=== PATIENT | female | born 1995 | race Caucasian/White ===

== ENCOUNTER 2017-06-08 11:46 | Emergency (ER) | payer OTHER ==
[~2017-06-08] VITALS: Ht 154.9 cm; Wt 71.4 kg
[2017-06-08 11:49] VITALS: TEMP 36.9; Ht 154.9 cm; Wt 71.4 kg
[2017-06-08] MEDS ORDERED: SODIUM CHLORIDE 0.9% 1000ML 1,000 ML IV STA (12:25)
[2017-06-08] MEDS ORDERED: METOCLOPRAMIDE HCL INJ 5 MG/ML 2 ML VIAL IV STA (12:25)
[2017-06-08 12:35] VITALS: O2SAT 98
--- NOTE | 2017-06-08 12:36 | EMERGENCY ROOM VISIT NOTE ---
History Report prepared by Nenita: Suni Patel Under the Supervision of: Dr. Yeison Kay M.D. First contact with patient: 12:20 Chief Complaint: SYNCOPE Stated Complaint: SYNCOPE/DIZZINESS Nursing Triage Summary: Patient arrived vis EMS. Pt states had a cigarette this morning 10:45 am and got dizzy and collapsed, no seizure activity noted from bystanders, LOC less than 2 minutes. Patient is , 17 weeks. C/O headache, bilateral frontal, has had them frequently since her second trimester. Pt c/o bilateral lower back pain but had achiness there prior to collapsing. Pt friend stated to pt that pt fell straight back when she fell. History of Present Illness The patient is a 21 year old female who presents to the Emergency Room with complaints of a sudden syncopal episode that occurred prior to arrival. She currently rates her discomfort as a 6/10 in severity. The patient states that she is currently 17 weeks for the first time. She states that she was sitting on the porch smoking a cigarette when she suddenly became lightheaded and collapsed. The patient states that her friend states that she fell backwards, denying any head trauma. She denies any drug or alcohol use. The patient states that she smokes 1 cigarette every three days and denies this ever happening in the past with smoking. She reports a recent congestion. The patient reports that she did not eat breakfast this morning because she was not hungry. She reports normal eating and drinking otherwise. The patient states that she has been feeling lightheaded. She states that since the syncopal episode she has had a headache, but her significant other additionally notes that the patient has been getting headaches often since she became . The patient denies any history of headaches prior to her . She states that her previous ultrasounds have been normal and has had a normal thus far. The patient denies any active medical problems. She denies any fever , chills, abdominal pain, urinary symptoms, diarrhea, constipation, or vaginal bleeding. Source of History: patient Onset: prior to arrival Position: other (global) Symptom Intensity: 6/10 Quality: other (syncopal episode) Timing: other (sudden) Associated Symptoms: + headache, No fevers, No chills, No abdominal pain, No diarrhea, No urinary symptoms Note: Associated Symptoms: lightheadedness Review of Systems See HPI for pertinent positives and negatives. A total of ten systems were reviewed and were otherwise negative. Past Medical & Surgical Medical Problems: (1) No Known Active Medical Problems Social History Smoking Status: Current Every Day Smoker Alcohol Use: none Drug Use: none Marital Status: Housing Status: lives with significant other Current/Historical Medications Scheduled Nitrofurantoin Monohyd Macrocr (Macrobid), 100 MG PO BID Sertraline (Zoloft), 25 MG PO DAILY Allergies Coded Allergies: No Known Allergies (Unverified , 06/08/17) Physical Exam Vital Signs Date Time Temp Pulse Resp B/P (MAP) Pulse Ox O2 Delivery O2 Flow Rate FiO2 06/08/17 15:45 83 18 112/68 97 06/08/17 14:44 69 16 102/52 98 Room Air 06/08/17 13:59 72 109/61 97 Room Air 06/08/17 12:46 90 16 106/81 98 Room Air 06/08/17 12:35 98 Room Air 06/08/17 12:11 87 06/08/17 12:02 83 124/71 85 126/61 81 106/61 103 06/08/17 11:49 36.9 92 16 121/72 97 Room Air Physical Exam GENERAL: Awake, alert, well-appearing, in no distress HENT: Normocephalic, atraumatic. Dry mucous membranes. EYES: Normal conjunctiva. Sclera non-icteric. NECK: Supple. No nuchal rigidity. FROM. No JVD. RESPIRATORY: Clear to auscultation. CARDIAC: Regular rate, normal rhythm. Extremities warm and well perfused. Pulses equal. ABDOMEN: Gravid abdomen non-tender non-distended. Soft. No rebound or guarding. No masses. RECTAL: Deferred. MUSCULOSKELETAL: Chest examination reveals no tenderness. The back is symmetrical on inspection without obvious abnormality. There is no CVA tenderness to palpation. No joint edema. LOWER EXTREMITIES: Calves are equal size bilaterally and non-tender. No edema. No discoloration. NEURO: Normal sensorium. No sensory or motor deficits noted. SKIN: No rash or jaundice noted. Medical Decision & Procedures ER Provider Diagnostic Interpretation: The ultrasound revealed that the patient has a positive IUP, heart rate was 140 with active movement. Laboratory Results 06/08/17 11:10 Red Blood Count 4.43, Mean Corpuscular Volume 86.9, Mean Corpuscular Hemoglobin 30.0, Mean Corpuscular Hemoglobin Concent 34.5, Mean Platelet Volume 11.2, Neutrophils (%) (Auto) 73.4, Lymphocytes (%) (Auto) 20.8, Monocytes (%) (Auto) 4.5, Eosinophils (%) (Auto) 0.7, Basophils (%) (Auto) 0.1, Neutrophils # (Auto) 11.03, Lymphocytes # (Auto) 3.12, Monocytes # (Auto) 0.67, Eosinophils # (Auto) 0.10, Basophils # (Auto) 0.01 06/08/17 12:34 Test 06/08/17 00:00 06/08/17 11:10 06/08/17 12:34 Urine Color YELLOW Urine Appearance CLEAR (CLEAR) Urine pH 7.5 (4.5-7.5) Urine Specific Ackley 1.011 (1.000-1.030) Urine Protein NEG (NEG) Urine Glucose (UA) NEG (NEG) Urine Ketones TRACE (NEG) Urine Occult Blood NEG (NEG) Urine Nitrite NEG (NEG) Urine Bilirubin NEG (NEG) Urine Urobilinogen NEG (NEG) Urine Leukocyte Esterase TRACE (NEG) Urine WBC (Auto) 10-30 /hpf (0-5) Urine RBC (Auto) 0-4 /hpf (0-4) Urine Hyaline Casts (Auto) 1-5 /lpf (0-5) Urine Epithelial Cells (Auto) >30 /lpf (0-5) Urine Bacteria (Auto) 1+ (NEG) Urine Renal Epithelial Cells 0-5 /lpf (0-5) Urine Pathogenic Casts 0-3 GRANULAR CASTS /lpf (0) White Blood Count 15.01 K/uL (4.8-10.8) Red Blood Count 4.43 M/uL (4.2-5.4) Hemoglobin 13.3 g/dL (12.0-16.0) Hematocrit 38.5 % (37-47) Mean Corpuscular Volume 86.9 fL (80-100) Mean Corpuscular Hemoglobin 30.0 pg (25-34) Mean Corpuscular Hemoglobin Concent 34.5 g/dl (32-36) Platelet Count 331 K/uL (130-400) Mean Platelet Volume 11.2 fL (7.4-10.4) Neutrophils (%) (Auto) 73.4 % Lymphocytes (%) (Auto) 20.8 % Monocytes (%) (Auto) 4.5 % Eosinophils (%) (Auto) 0.7 % Basophils (%) (Auto) 0.1 % Neutrophils # (Auto) 11.03 K/uL (1.4-6.5) Lymphocytes # (Auto) 3.12 K/uL (1.2-3.4) Monocytes # (Auto) 0.67 K/uL (0.11-0.59) Eosinophils # (Auto) 0.10 K/uL (0-0.5) Basophils # (Auto) 0.01 K/uL (0-0.2) RDW Standard Deviation 42.2 fL (36.4-46.3) RDW Coefficient of Variation 13.1 % (11.5-14.5) Immature Granulocyte % (Auto) 0.5 % Immature Granulocyte # (Auto) 0.08 K/uL (0.00-0.02) Human Chorionic Gonadotropin, Quant 37670 mIU/mL Anion Gap 13.0 mmol/L (3-11) Est Creatinine Clear Calc Drug Dose 159.4 ml/min Estimated GFR () > 150.0 Estimated GFR (Non- 137.4 BUN/Creatinine Ratio 15.0 (10-20) Calcium Level 9.4 mg/dl (8.5-10.1) Total Bilirubin 0.2 mg/dl (0.2-1) Direct Bilirubin mg/dl (0-0.2) Aspartate Amino Transf (AST/SGOT) 16 U/L (15-37) Alanine Aminotransferase (ALT/SGPT) 15 U/L (12-78) Alkaline Phosphatase 81 U/L (45-117) Total Protein 6.7 gm/dl (6.4-8.2) Albumin 3.0 gm/dl (3.4-5.0) Lipase 104 U/L (73-393) Chemistry Specimen Hemolysis Laboratory results reviewed by me Medications Administered Medications (Trade) Dose Ordered Sig/Karen Route Start Time Stop Time Status Last Admin Dose Admin Sodium Chloride 1,000 ml @ 999 mls/hr Q1H1M STAT IV 06/08/17 12:25 06/08/17 13:25 DC 06/08/17 12:25 999 MLS/HR Metoclopramide HCl (Reglan Inj) 10 mg NOW STAT IV 06/08/17 12:25 06/08/17 12:28 DC 06/08/17 12:47 10 MG Nitrofurantoin Macrocrystals (Macrobid Cap) 100 mg ONE ONCE PO 06/08/17 15:15 06/08/17 15:16 DC 06/08/17 15:42 100 MG ECG Indication: syncope Rate (beats per minute): 88 Rhythm: normal sinus Findings: no acute ischemic change, other (normal axis, nomral intervals) ED Course 1223: The patient was evaluated in room B6. A complete history and physical exam was performed. 1225: Ordered Reglan Inj 10 mg IV, Sodium Chloride 1000 ml @ 999 mls/hr IV. 1327: I did a bedside ultrasound on the patients abdomen at this time. See diagnostic testing for further detail. Medical Decision Differential diagnosis: Etiologies such as vasovagal/orthostatic event, dehydration, infection, hypoglycemia, electrolyte abnormalities, cardiac sources, intracerebral event, neurologic, as well as others were entertained. I reviewed the patient's past medical history, medications, and the nursing notes as described above. Medication Reconciliation: I attest that I have personally reviewed the patient' s current medication list Patient is a 21-year-old woman who is 17 weeks who presents emergency Department with an episode of syncope history of present illness. Arrival the patient is in no acute distress. Afebrile stable vital signs. Bedside ultrasound shows + IUP with active fetus moving all extremities and FHR are 140s. EKG and labs unremarkable. Patient feeling improved with IV fluids and Reglan. No signs of external head trauma and she is neurologically intact thus do not believe head imaging is indicated at this time. UA dirty sample with many epithelial cells, however with 30 wbc's and positive LE with 1+ bacteria. Thus we'll treat this patient for asymptomatic bacteriuria with Macrobid. Otherwise, the patient's syncopal episode is likely related to orthostasis the setting of , as well as minimal oral intake this morning in setting of smoking a cigarette as well as possible UTI. Patient was counseled on smoking cessation during . Symptoms mostly resolved after IV fluids and Reglan. Findings and plan for OB follow-up d/w patient. Patient agreeable and d/c'd per discharge instructions. Impression Primary Impression: Syncope Additional Impression: Urinary tract infection Scribe Attestation The scribe's documentation has been prepared under my direction and personally reviewed by me in its entirety. I confirm that the note above accurately reflects all work, treatment, procedures, and medical decision making performed by me. Departure Information Dispostion Home / Self-Care Prescriptions Nitrofurantoin Monohyd Macrocr (Macrobid) 100 Mg Cap 100 MG PO BID, #14 CAP Prov: Yeison Kay M.D. 06/08/17 Patient Instructions ED Dizziness Syncope Fainting W Pre, Fainting (Syncope) - [facility], My [facility], Urinary Tract Infecs Women Additional Instructions Please follow up with your metal window frame maker in the next 1-3 days for re-evaluation. Your urine showed that you may have a urinary tract infection. Otherwise, your exam, EKG, and lab results did not show signs of an emergent condition at this time. Take antibiotics as directed. Drink plenty of fluids to ensure hydration. Return to the emergency department for worsening symptoms as described in the accompanying instructions. Problem Qualifiers
[2017-06-08 12:42] LABS: BASO % 0.1 %; BASO ABS # 0.01 K/uL (0-0.2); COMPLETE YES; EOS % 0.7 %; HEMATOCRIT 38.5 % (37-47); IG% 0.5 %; LYMPH % 20.8 %; LYMPH ABS # 3.12 K/uL (1.2-3.4); MEAN CELL VOLUME 86.9 fL (80-100); MEAN CORPUSCULAR HGB CONC 34.5 g/dl (32-36); MEAN PLATELET VOLUME 11.2 fL (7.4-10.4); MONO % 4.5 %; NEUT % 73.4 %; PLATELET COUNT 331 K/uL (130-400); RED BLOOD COUNT 4.43 M/uL (4.2-5.4); WHITE BLOOD COUNT 15.01 K/uL (4.8-10.8)
[2017-06-08] MEDS ORDERED: SERT25TA PO (13:07)
[2017-06-08 13:18] LABS: ALKALINE PHOSPHATASE 81 U/L (45-117); ALT/SGPT 15 U/L (12-78); AST/SGOT 16 U/L (15-37); BLOOD UREA NITROGEN 8 mg/dl (7-18); CALCIUM 9.4 mg/dl (8.5-10.1); CARBON DIOXIDE 20 mmol/L (21-32); CHLORIDE 104 mmol/L (98-107); GLUCOSE 82 mg/dl (70-99); POTASSIUM 3.9 mmol/L (3.5-5.1); SODIUM 137 mmol/L (136-145)
[2017-06-08 14:39] LABS: URINE APPEARANCE CLEAR (CLEAR); URINE BILIRUBIN NEG (NEG); URINE COLOR YELLOW; URINE EPITHELIAL CELL AUTO >30 /lpf (0-5); URINE NITRITE NEG (NEG); URINE PH 7.5 (4.5-7.5); URINE SPECIFIC GRAVITY 1.011 (1.000-1.030); UROBILINOGEN NEG (NEG); ZZUR CULT IF INDIC CLEAN CATCH YES
[2017-06-08 14:44] LABS: MANUAL MICROSCOPIC REQUIRED? NO; REVIEW REQ? YES
[2017-06-08 15:02] LABS: URINE PATH CASTS 0-3 GRANULAR CASTS /lpf (0)
[2017-06-08] MEDS ORDERED: NITR-5 PO (15:14)
[2017-06-08] MEDS ORDERED: NITROFURANTOIN MONOHYDRATE 100 MG CAP PO ONE (15:15)
[2017-06-08 15:45] VITALS: BP 112/68; PULSE 83; O2SAT 97
== END 2017-06-08 15:45 | disposition home or self-care (01) ==
LOC: EDBD 11:46 → C.EDB 11:48
DX: R55 Syncope and collapse (principal); O23.42 Unspecified infection of urinary tract in pregnancy, second trimester; O99.332 Smoking (tobacco) complicating pregnancy, second trimester; F17.210 Nicotine dependence, cigarettes, uncomplicated; Z3A.17 17 weeks gestation of pregnancy

== ENCOUNTER 2017-09-22 00:37 | Outpatient (CLI) | payer OTHER ==
[~2017-09-22] VITALS: Ht 157.5 cm; Wt 80.3 kg
[~2017-09-22 00:37] MED LIST: NITR-5 PO; SERT25TA PO
[2017-09-22 02:01] VITALS: Ht 157.5 cm; Wt 80.3 kg
--- NOTE | 2017-09-22 02:43 | Progress Note ---
Progress Note Date of Service Sep 22, 2017. Progress Note 21 F P0010 at 32.2 weeks seen in L&D complaining of pelvic pain. No bleeding or leakage of fluid. No urinary symptoms. No abdominal pain with exam. FHT Cat 1. Cervix closed/thick/-3. No evidence of any labor or contractions on monitor. Patient feels better and will be discharged home.
== END 2017-09-22 02:50 | disposition home or self-care (01) ==
LOC: C.OPB 00:37 → C.LD 00:40 → C.OPB 02:50
PROVIDERS: ATTEND Obstetrics & Gynecology
DX: O99.89 Other specified diseases and conditions complicating pregnancy, childbirth and the puerperium (principal); R10.2 Pelvic and perineal pain; Z3A.32 32 weeks gestation of pregnancy

== ENCOUNTER 2017-10-30 18:08 | Emergency (ER) | payer OTHER ==
[~2017-10-30] VITALS: Ht 154.9 cm; Wt 82.3 kg
[2017-10-30 18:14] VITALS: TEMP 36.5; Ht 154.9 cm; Wt 82.3 kg
[2017-10-30] MEDS ORDERED: ACETAMINOPHEN 500 MG TAB PO STA (18:34)
[2017-10-30] MEDS ORDERED: SODIUM CHLORIDE 0.9% 1000ML 1,000 ML IV ONE (18:45)
[2017-10-30] MEDS ORDERED: ONDANSETRON INJ 2 MG/ML 2 ML VIAL IV PRN (18:45)
--- NOTE | 2017-10-30 19:00 | EMERGENCY ROOM VISIT NOTE ---
History First contact with patient: 18:19 Chief Complaint: FLU LIKE SX Stated Complaint: VOTIMITING,FEVER, 38 WEEKS History of Present Illness The patient is a 22 year old female who presents to the Emergency Room with complaints of vomiting and fever that started last night. The patient has sternal approximately 10 times. She has had mild abdominal cramping. No diarrhea. The patient is 38 weeks . She has been struggling with constipation. Her fever was 100F. She did not take any medications. She is still feeling good movement. She denies any vaginal bleeding. She has not had any, patients with the . She is receiving care. Review of Systems 10 system review performed and negative unless noted in HPI or below Past Medical/Surgical History Medical Problems: (1) No Known Active Medical Problems Depression Social History Smoking Status: Never Smoker Alcohol Use: none Drug Use: none Marital Status: Housing Status: lives with significant other Current/Historical Medications Scheduled Docusate Sodium (Docusate Sodium), 100 MG PO DAILY Multivit/Min/Iron/Fol Ac/Pren ( Vitamin), 1 TAB PO DAILY Ondasetron Odt (Zofran Odt), 4 MG SL Q6H Sertraline (Zoloft), 25 MG PO DAILY Scheduled PRN Polyethylene Glycol 3350 (Miralax), 17 GM PO DAILY PRN for Constipation Physical Exam Vital Signs Date Time Temp Pulse Resp B/P (MAP) Pulse Ox O2 Delivery O2 Flow Rate FiO2 10/30/17 23:10 81 16 126/83 96 Room Air 10/30/17 20:55 93 18 111/72 97 Room Air 10/30/17 18:14 36.5 109 18 131/64 98 Room Air Physical Exam VITALS: Vitals are noted on the nurse's note and reviewed by myself. Vital signs stable. GENERAL: 22-year-old female,, in no acute distress, nondiaphoretic, well- developed well-nourished. SKIN: The skin was without rashes, erythema, edema, or bruising. HEAD: Normocephalic atraumatic. MOUTH: Mucous membranes moderately dry NECK: Supple without nuchal rigidity. No lymphadenopathy. Cervical spine is nontender. No JVD. HEART: Regular rate and rhythm without murmurs gallops or rubs. LUNGS: Clear to auscultation bilaterally without wheezes, rales or rhonchi. No accessory muscle use. ABDOMEN: Gravid. Positive bowel sounds x 4.Soft, nontender, without organomegaly. No guarding or rebound tenderness. MUSCULOSKELETAL: No muscle atrophy, erythema, or edema noted. Strength 5/5 throughout. NEURO: Patient was alert and oriented to person place and time. Normal sensation to touch. No focal neurological deficits. Medical Decision & Procedures ER Provider Diagnostic Interpretation: Gallbladder ultrasound Patient Name: JUANI HIDALGO Unit Number: [id number] Dictated: 10/30/172117 Transcribed: 10/30/172117 JRB Printed Date/Time: [~ rep prt dt]/[~ rep prt tm] [~ rep ct labl] - [~ rep ct ivnm] [facility] [place] [address] Dictated: 10/30/172117 Transcribed: 10/30/172117 JRB Printed Date/Time: [~ rep prt dt]/[~ rep prt tm] [~ rep ct labl] - [~ rep ct ivnm] IMPRESSION: 1. Unremarkable sonographic appearance of the gallbladder without cholelithiasis or sonographic evidence of acute cholecystitis. 2. No biliary ductal dilation. The above report was generated using voice recognition software. It may contain grammatical, syntax or spelling errors. Electronically signed by: Kaden Salas M.D. 10/30/2017 9:23 PM Dictated Date/Time: 10/30/2017 9:18 PM The status of this report is Signed. Draft = Not yet reviewed or approved by Radiologist. Signed = Reviewed and approved by Radiologist. <AttendingPhy></AttendingPhy> <FamilyPhy>Lina Stewart</FamilyPhy> < PrimaryPhy>Leticia Richards M.D.</PrimaryPhy> <UnitNumber>[id number]</UnitNumber > <VisitNumber>[id number]</VisitNumber> <PatientName>TRAE HIDALGOLUIS F Davey</ PatientName> <DateOfBirth>1995</DateOfBirth> <Location>[facility]</Location> < ServiceDate>10/30/17</ServiceDate> <MNE>ESINDI</MNE> <OrderingPhy>Rafaela Powers PA-C</OrderingPhy> <OrderingPhyMNE>f rep ord dr fisher</OrderingPhyMNE> < DictatingPhyMNE>f rep dict dr fisher</DictatingPhyMNE> <CCListMNE>f rep ct mne</ CCListMNE> <AdmittingPhyMNE>f pt admit dr fisher</AdmittingPhyMNE> <AttendingPhyMNE >f pt attend dr fisher</AttendingPhyMNE> <ConsultingPhyMNE>f pt consult dr fisher</ConsultingPhyMNE> <FamilyPhyMNE>f pt fam dr fisher</FamilyPhyMNE> <OtherPhyMNE>f pt other dr fisher</OtherPhyMNE> < PrimaryPhyMNE>f pt prim care dr fisher</PrimaryPhyMNE> <ReferringPhyMNE>f pt referring dr fisher</ReferringPhyMNE> Laboratory Results 10/30/17 18:50 Red Blood Count 4.24, Mean Corpuscular Volume 82.8, Mean Corpuscular Hemoglobin 27.4, Mean Corpuscular Hemoglobin Concent 33.0, Mean Platelet Volume 10.6, Neutrophils (%) (Auto) 88.0, Lymphocytes (%) (Auto) 8.5, Monocytes (%) (Auto) 2.7, Eosinophils (%) (Auto) 0.1, Basophils (%) (Auto) 0.1, Neutrophils # (Auto) 10.57, Lymphocytes # (Auto) 1.02, Monocytes # (Auto) 0.32, Eosinophils # (Auto) 0.01, Basophils # (Auto) 0.01 10/30/17 18:50 Test 10/30/17 18:50 10/30/17 19:09 White Blood Count 12.00 K/uL (4.8-10.8) Red Blood Count 4.24 M/uL (4.2-5.4) Hemoglobin 11.6 g/dL (12.0-16.0) Hematocrit 35.1 % (37-47) Mean Corpuscular Volume 82.8 fL (80-100) Mean Corpuscular Hemoglobin 27.4 pg (25-34) Mean Corpuscular Hemoglobin Concent 33.0 g/dl (32-36) Platelet Count 284 K/uL (130-400) Mean Platelet Volume 10.6 fL (7.4-10.4) Neutrophils (%) (Auto) 88.0 % Lymphocytes (%) (Auto) 8.5 % Monocytes (%) (Auto) 2.7 % Eosinophils (%) (Auto) 0.1 % Basophils (%) (Auto) 0.1 % Neutrophils # (Auto) 10.57 K/uL (1.4-6.5) Lymphocytes # (Auto) 1.02 K/uL (1.2-3.4) Monocytes # (Auto) 0.32 K/uL (0.11-0.59) Eosinophils # (Auto) 0.01 K/uL (0-0.5) Basophils # (Auto) 0.01 K/uL (0-0.2) RDW Standard Deviation 43.7 fL (36.4-46.3) RDW Coefficient of Variation 14.5 % (11.5-14.5) Immature Granulocyte % (Auto) 0.6 % Immature Granulocyte # (Auto) 0.07 K/uL (0.00-0.02) Anion Gap 8.0 mmol/L (3-11) Est Creatinine Clear Calc Drug Dose 125.1 ml/min Estimated GFR () 142.9 Estimated GFR (Non- 123.3 BUN/Creatinine Ratio 16.2 (10-20) Calcium Level 8.8 mg/dl (8.5-10.1) Total Bilirubin 0.4 mg/dl (0.2-1) Aspartate Amino Transf (AST/SGOT) 22 U/L (15-37) Alanine Aminotransferase (ALT/SGPT) 27 U/L (12-78) Alkaline Phosphatase 184 U/L (45-117) Total Protein 6.7 gm/dl (6.4-8.2) Albumin 2.4 gm/dl (3.4-5.0) Globulin 4.3 gm/dl (2.5-4.0) Albumin/Globulin Ratio 0.6 (0.9-2) Influenza Type A Antigen Neg for Influ A (NEG) Influenza Type B Antigen Neg for Influ B (NEG) Medications Administered Medications (Trade) Dose Ordered Sig/Karen Route Start Time Stop Time Status Last Admin Dose Admin Ondansetron HCl (Zofran Inj) 4 mg Q2H PRN IV 10/30/17 18:45 11/29/17 18:44 10/30/17 19:11 4 MG Sodium Chloride 1,000 ml @ 999 mls/hr Q1H1M ONCE IV 10/30/17 18:45 10/30/17 19:45 DC 10/30/17 18:45 999 MLS/HR Acetaminophen (Tylenol Tab) 1,000 mg NOW STAT PO 10/30/17 18:34 10/30/17 18:38 DC 10/30/17 19:11 1,000 MG ED Course Patient was seen and examined Vital signs including blood pressure were reviewed medications list was verified with patient Labs were obtained, and a saline lock was established The patient was medicated with Tylenol and Zofran. She was hydrated with 1 L of normal saline. heart rate was approximately 145 bpm The patient was sent for ultrasound. The patient was reassessed. She was resting comfortably. We discussed her workup. She voiced understanding. She was comfortable being discharged home. Her nausea was much improved. He was tolerating liquids. The patient was given a home pack of Zofran I reviewed discharge instructions the patient. They voiced understanding and had no further questions. Medical Decision Differential diagnosis: Viral gastroenteritis, bacterial gastroenteritis, bowel obstruction, constipation, influenza, other viral syndrome, pneumonia, gallbladder disease, preeclampsia This patient is a 22-year-old female 38 weeks presents to the emergency department with low-grade fever and vomiting. On exam, she was dehydrated. She did not have any tenderness in her abdomen. Her lungs were clear. She was nontoxic in appearance. The patient's has the same symptoms. The patient's influenza swab was negative. Her labs reveal mild leukocytosis. Her alk phosphatase was slightly elevated. I ordered an ultrasound to make sure that this was not related to her gallbladder given the . The ultrasound was negative. Very low suspicion of preeclampsia given the other LFTs are normal. Her blood pressure is well controlled. I believe she likely has a GI illness. She had good symptomatic relief in the emergency department. She is tolerating liquids. I believe she is stable to be discharged home. She was sent home with a course of Zofran. She was advised to contact her C++ QUANT DEVELOPER in the morning and return here with worsening symptoms. This chart was completed in part utilizing [employer] Speech Voice Recognition software. Attempts were made to minimize the grammatical errors, random word insertions, pronoun errors and incomplete sentences. Any formal questions or concerns about the content, text or information contained within the body of this dictation should be directly addressed to the provider for clarification. Medication Reconcilliation Current Medication List: was personally reviewed by me Blood Pressure Screening Patient's blood pressure: Normal blood pressure Impression Primary Impression: Vomiting Departure Information Dispostion Home / Self-Care Condition GOOD Prescriptions Ondasetron Odt (ZOFRAN ODT) 4 Mg Tab 4 MG SL Q6H for Nausea, #15 TAB Prov: Rafaela Powers PA-C 10/30/17 Referrals Leticia Richards M.D. (PCP) Patient Instructions ED Diet Vomiting Wwo Diarrhea Ch, My [facility] Additional Instructions You have been treated in the emergency department for vomiting and body aches. This is likely due to a viral GI illness that we'll need to run its course. It is important to stay well hydrated. Please increase her fluid intake such as water and Gatorade over the next 48 hours. I would stick to a clear liquid diet, no solid food tonight. If you are feeling better in the morning, please advance to a bland diet such as dry toast and crackers. Call the C++ QUANT DEVELOPER doctor first thing tomorrow morning for a recheck Zofran 1 tab every 6 hours as needed for nausea Tylenol 650 mg every 6 hours as needed for fever or pain Please do not hesitate to return to the emergency department with any new, worsening or concerning symptoms
[2017-10-30] MEDS ORDERED: POLY335019 PO (19:02)
[2017-10-30] MEDS ORDERED: CLC100X PO (19:02)
[2017-10-30] MEDS ORDERED: PRENTAB26 PO (19:02)
[2017-10-30 19:05] LABS: BASO % 0.1 %; BASO ABS # 0.01 K/uL (0-0.2); EOS % 0.1 %; EOS ABS # 0.01 K/uL (0-0.5); HEMATOCRIT 35.1 % (37-47); HEMOGLOBIN 11.6 g/dL (12.0-16.0); IG# 0.07 K/uL (0.00-0.02); LYMPH % 8.5 %; LYMPH ABS # 1.02 K/uL (1.2-3.4); MEAN CELL VOLUME 82.8 fL (80-100); MEAN CORPUSCULAR HEMOGLOBIN 27.4 pg (25-34); MEAN PLATELET VOLUME 10.6 fL (7.4-10.4); MONO % 2.7 %; MONO ABS # 0.32 K/uL (0.11-0.59); NEUT ABS # 10.57 K/uL (1.4-6.5); PLATELET COUNT 284 K/uL (130-400); RED CELL DISTRIBUTION WIDTH CV 14.5 % (11.5-14.5); RED CELL DISTRIBUTION WIDTH SD 43.7 fL (36.4-46.3)
[2017-10-30 19:21] LABS: ALBUMIN 2.4 gm/dl (3.4-5.0); CALCIUM 8.8 mg/dl (8.5-10.1); CREATININE 0.68 mg/dl (0.60-1.20); POTASSIUM 3.5 mmol/L (3.5-5.1)
[2017-10-30 19:24] LABS: TOTAL PROTEIN 6.7 gm/dl (6.4-8.2)
[2017-10-30 19:44] LABS: INFLUENZA B ANTIGEN Neg for Influ B (NEG)
--- NOTE | 2017-10-30 21:24 | DIAGNOSTIC IMAGING REPORT ---
GALLBLADDER-ABD LIMITED HISTORY: 22 years-old Female abd pain vomiting fever acute generalized abdominal pain with fever and vomiting COMPARISON: Head CT 06/08/2017 TECHNIQUE: Multiple real-time sonogram images of the abdominal right upper quadrant were obtained assessing grayscale appearance and color flow FINDINGS: Pancreas is obscured by bowel gas. Liver is within normal limits without focal mass or intrahepatic biliary ductal dilation measuring 13.8 cm in length. Common bile duct is normal, 7 mm. The gallbladder is within normal limits without wall thickening, pericholecystic fluid collections or shadowing cholelithiasis. Patient was unable to lie in a decubitus position. Acoustic windows limited. No hydronephrosis of the right kidney identified. IMPRESSION: 1. Unremarkable sonographic appearance of the gallbladder without cholelithiasis or sonographic evidence of acute cholecystitis. 2. No biliary ductal dilation. The above report was generated using voice recognition software. It may contain grammatical, syntax or spelling errors. Electronically signed by: Kaden Salas M.D. 10/30/2017 9:23 PM Dictated Date/Time: 10/30/2017 9:18 PM
[2017-10-30] MEDS ORDERED: ONDANSETRON HOME PACK 4MG OD TAB PO ONE (22:15)
[2017-10-30] MEDS ORDERED: ONDA4TAB10 SL (22:34)
[2017-10-30 23:10] VITALS: BP 126/83; PULSE 81; O2SAT 96
== END 2017-10-30 23:25 | disposition home or self-care (01) ==
LOC: C.EDB 18:11
DX: O99.89 Other specified diseases and conditions complicating pregnancy, childbirth and the puerperium (principal); E86.0 Dehydration; Z3A.38 38 weeks gestation of pregnancy; Z79.899 Other long term (current) drug therapy

== ENCOUNTER 2017-11-13 22:29 | Inpatient (IN) | payer OTHER ==
[~2017-11-13] VITALS: Ht 157.5 cm; Wt 83.6 kg
[~2017-11-13 22:29] MED LIST changes: +CLC100X PO; -NITR-5 PO; +ONDA4TAB10 SL; +POLY335019 PO; +PRENTAB26 PO
[2017-11-13] MEDS ORDERED: OXYCODONE/ACETAMINOPHEN 5-325 TAB PO PRN (23:00)
[2017-11-13 23:20] LABS: HEMATOCRIT 33.6 % (37-47); MEAN CELL VOLUME 82.2 fL (80-100); MEAN CORPUSCULAR HEMOGLOBIN 26.9 pg (25-34); MEAN CORPUSCULAR HGB CONC 32.7 g/dl (32-36); MEAN PLATELET VOLUME 10.4 fL (7.4-10.4); PLATELET COUNT 277 K/uL (130-400); RED CELL DISTRIBUTION WIDTH SD 44.6 fL (36.4-46.3)
[2017-11-13] MEDS ORDERED: LACTATED RINGER'S 1000ML 1,000 ML IV SCH (23:30)
[2017-11-13 23:40] LABS: ALBUMIN 2.2 gm/dl (3.4-5.0); ALT/SGPT 16 U/L (12-78); AST/SGOT 14 U/L (15-37); BLOOD UREA NITROGEN 14 mg/dl (7-18); CALCIUM 8.8 mg/dl (8.5-10.1); CARBON DIOXIDE 23 mmol/L (21-32); CREATININE 0.78 mg/dl (0.60-1.20); GLUCOSE 99 mg/dl (70-99); POTASSIUM 3.6 mmol/L (3.5-5.1); SODIUM 138 mmol/L (136-145)
[2017-11-13 23:42] LABS: ALKALINE PHOSPHATASE 180 U/L (45-117); TOTAL PROTEIN 6.5 gm/dl (6.4-8.2)
[2017-11-13] MEDS ORDERED: MoRPHine SULFATE 4 MG/ML 1 ML CARP\\VIAL IV STA (23:46)
[2017-11-14] VITALS (15 sets, daily range): BP systolic 95–116; BP diastolic 57–73; PULSE 67–75; TEMP 36.4–36.9; O2SAT 96–100; Ht 157.5 cm; Wt 83.6 kg
[2017-11-14] MEDS ORDERED: LACTATED RINGER'S 1000ML 1,000 ML IV SCH (00:05)
[2017-11-14] MEDS ORDERED: CEFAZOLIN IV 2,000 MG in DEXTROSE 5% 50ML 50 ML IV STA (00:12)
[2017-11-14] MEDS ORDERED: CITRIC ACID/SODIUM CITRATE 15 ML UDC PO ONE (00:15)
--- NOTE | 2017-11-14 00:17 | HISTORY & PHYSICAL EXAMINATION ---
DATE OF ADMISSION: 11/13/2017 CHIEF COMPLAINT: Headache and leakage of fluid and contractions. HISTORY OF PRESENT ILLNESS: The patient is a 22-year-old G2, P0-0-1-0 at 40 weeks and 1 day of gestation who has been feeling contractions since this morning. They have been irregular every 15-20 minutes and not getting closer. She also felt a mucousy discharge and leaking this morning. She has been trickling small amount of fluid since then which has been clear. She also started to have headache about 4 hours ago. It is in her left forehead and it has been 7/10 in intensity. She took Tylenol 1000 mg for that with no help. She denies any change in her vision, numbness, tingling and weakness. She denies nausea, vomiting, epigastric or right upper quadrant pain. She reports good movements. She is presenting with above symptoms and had a pelvic exam with a speculum. There was no pooling. Nitrazine negative, ferning negative. Pelvic exam showed her cervix is 1-2 cm, 30%, -3. Bedside ultrasound was done and baby was found to be in breech presentation, ROSELYN was 3.3 cm. Discussed the findings with her with breech presentation and low fluid. Recommended admission and delivery. Discussed External cephalic version vs Primary Csection. The risks of EVC and Csection discussed in details. Not a good candidate for ECV. She understands as a major surgery including risks of bleeding, infection, injury to surrounding organs, blood clots and future risk of recurrent C-sections. She ate a fatty meal at 9:30 p.m. She will be admitted now and starting IV fluids and labs and she will have a later tomorrow morning per anesthesiology recommendations. All questions were answered. Her has been complicated by: 1. History of depression. She is taking Zoloft 50 mg daily. 2. Abnormal quad screening, increased risk of Down's syndrome. She had MFM consult, ultrasound was normal. 3. Tobacco smoking complicating . She quit around 31 weeks. PAST MEDICAL HISTORY: As above. PAST SURGICAL HISTORY: Tonsillectomy, D&C, removal of pilonidal cyst. MEDICATIONS: vitamins, Zofran 4 mg as needed, Zoloft 50 mg daily, Colace 100 mg b.i.d., MiraLax 17 mg daily. ALLERGIES: No known drug allergies. OBSTETRICAL HISTORY: This is her second . She had spontaneous in 2011, she had a D&C for that. GYNECOLOGIC HISTORY: The patient denies any history of STDs including Chlamydia, gonorrhea, herpes. LABS: At new OB visit, her urine culture was negative. Her blood type was A positive, antibody screen negative, HIV nonreactive, hepatitis B surface antigen negative, RPR nonreactive, rubella titer positive. Earlier Glucola was within normal limits. GC chlamydia cultures were negative and GBS culture was negative. Quad screening test was positive. Increased risk for Down syndrome 1:239. PHYSICAL EXAMINATION: GENERAL: The patient is alert, oriented x3, not in acute distress. VITAL SIGNS: Blood pressure is 118/59, respiration 18, pulse 78, temperature 97.85 Fahrenheit. NEUROLOGICAL: Including cranial nerves II-XII are normal. Sensory exam normal. Extremity motor strength normal. Sensation normal. Reflexes, 2+ in the lower extremities. No clonus. ABDOMEN: Soft, nontender, gravid. Igor 8 pounds. EXTREMITIES: Nontender, no edema. PELVIC: Speculum exam, there were no pulling. Nitrazine negative, ferning negative. heart rate baseline is 120 with good accelerations, no decelerations, moderate variability. Tocometer contractions every 6-7 minutes. ASSESSMENT AND PLAN: The patient is a 22-year-old G2, P0-0-1-0 at 40 weeks and 1 day of gestation presenting with headache, irregular contractions and questionable leakage of fluid. Vital signs stable, afebrile. Neurologic exam is normal Spekulum exam negative for leaking of amniotic fluid. she was found to have a breech presentation with a low ROSELYN heart rate reassuring. GBS negative. Plan is to admit her, start IV fluids. Labs for CBC, LFTs and urinalysis and discussed the options with primary for breech delivery. She understands she is not a good candidate for external cephalic version. The patient understands and agrees with the plan and signed the informed consent. Consulted anesthesiology, Dr. Sykes who recommended surgery in the morning, at least 8 hours since last meal and agreed earlier if she changes her cervix or indication for emergent delivery rises. All questions were answered. SOREN
[2017-11-14] MEDS ORDERED: IV FLUIDS COMPLETED PRN (02:30)
[2017-11-14] MEDS ORDERED: SERT50TA PO ×2 (03:30→03:31)
[2017-11-14] MEDS ORDERED: MoRPHine SULFATE PF 1 MG/ML 10 ML AMP/VIAL ONE (07:03)
[2017-11-14] MEDS ORDERED: FENTANYL CITRATE INJ 50 MCG/1 ML 2 ML VIAL ONE (07:03)
[2017-11-14] MEDS ORDERED: SODIUM CHLORIDE 0.9% 1000ML 1,000 ML IV PRN (07:19)
[2017-11-14] MEDS ORDERED: LACTATED RINGER'S 1000ML 500 ML IV PRN (07:19)
[2017-11-14] MEDS ORDERED: NALOXONE HCL INJ 1 MG in SODIUM CHLORIDE 0.9% 1000ML 1,000 ML IV PRN (07:19)
[2017-11-14] MEDS ORDERED: NALOXONE HCL INJ 0.08 MG in SYRINGE 1.8 ML IV PRN (07:19)
[2017-11-14] MEDS ORDERED: NO NARCOTICS OR SEDATIVES SCH (07:30)
[2017-11-14] MEDS ORDERED: NALBUPHINE HCL INJ 10 MG/ML AMP IV PRN (07:30)
[2017-11-14] MEDS ORDERED: ONDANSETRON INJ 2 MG/ML 2 ML VIAL IV PRN ×2 (07:30)
[2017-11-14] MEDS ORDERED: EpHEDrine SULFATE INJ 50 MG/ML AMP IV PRN ×2 (07:30)
[2017-11-14] MEDS ORDERED: MoRPHine SULFATE 2 MG/ML CARP IV PRN (07:30)
[2017-11-14] MEDS ORDERED: ATROPINE SULFATE 0.1 MG/ML 5ML SYR IV PRN (07:30)
[2017-11-14] MEDS ORDERED: ACETAMINOPHEN 1000 MG/100 ML IV IV ONE (07:30)
[2017-11-14] MEDS ORDERED: DC INTRASPINAL MORPHINE SCH (07:30)
[2017-11-14] MEDS ORDERED: DiphenhydrAMINE HCL 50 MG/ML VIAL IV PRN (07:30)
[2017-11-14] MEDS ORDERED: PROMETHAZINE HCL INJ 25 MG in SODIUM CHLORIDE 0.9% 50ML 50 ML IV PRN (07:30)
[2017-11-14] MEDS ORDERED: NALOXONE HCL 0.4 MG/1 ML VIAL/CARP IV PRN (07:30)
[2017-11-14] MEDS ORDERED: MoRPHine SULFATE PF 1 MG/ML 10 ML AMP/VIAL EPI PRN (07:30)
[2017-11-14] MEDS ORDERED: CEFAZOLIN IV 2,000 MG in SYRINGE 5 ML IV STA (07:33)
[2017-11-14] MEDS ORDERED: PHENYLEPHRINE 100MCG/ML 5ML SYR ONE (08:21)
[2017-11-14] MEDS ORDERED: ONDANSETRON INJ 2 MG/ML 2 ML VIAL ONE (08:21)
[2017-11-14] MEDS ORDERED: KETOROLAC TROMETHAMINE 30 MG/ML VIAL ONE (08:32)
[2017-11-14] MEDS ORDERED: OXYTOCIN INJ 20 UNITS in D5W AND LACTATED RINGERS 1,000 ML IV SCH (08:37)
[2017-11-14] MEDS ORDERED: SUPERCREAM 0.870 % 15GM JAR EXT PRN (08:45)
[2017-11-14] MEDS ORDERED: DIPHTHERIA/TETANUS/PERTUSSIS 0.5 ML SYR/VIAL IM. ONE (08:45)
[2017-11-14] MEDS ORDERED: BENZOCAINE 20% AER SPR 82.5 GM CAN EXT PRN (08:45)
[2017-11-14] MEDS ORDERED: SENNA 8.6 MG TAB PO PRN (08:45)
[2017-11-14] MEDS ORDERED: MEASLES, MUMPS & RUBELLA VIRUS VIAL SQ. ONE (08:45)
[2017-11-14] MEDS ORDERED: MAGNESIUM HYDROXIDE SUSP 30 ML UDC PO PRN (08:45)
[2017-11-14] MEDS ORDERED: LANOLIN OINT EXT PRN (08:45)
[2017-11-14] MEDS ORDERED: HYDROCORTISONE ACETATE 25 MG SUPP PR PRN (08:45)
--- NOTE | 2017-11-14 08:54 | [facility] Post Operative Brief Note ---
Immediate Operative Summary Operative Date Nov 14, 2017. Pre-Operative Diagnosis PRIMARY CAESAREAN SECTION, BREECH PRESENTATION, OLIGOHYDRAMNIOS Post-Operative Diagnosis SAME WITH DELIVERY OF LIVE MALE CHILD Procedure(s) Performed LOW TRANSVERSE CAESAREAN SECTION Surgeon DR POLLARD Ob/Gyn Doctor Surgeon(s) DR SPANGLER Estimated Blood Loss 500CC Findings Consistent with Post-Op Diagnosis Fluids (cc crystalloids) 1600 ml LR Specimens A: CORD BLOOD B: PLACENTA EXAM Drains TIPTON 150 ML URINE Anesthesia Type Spinal Complication(s) none Disposition Disposition: L&D
[2017-11-14] MEDS ORDERED: OXYTOCIN INJ 20 UNITS in LACTATED RINGER'S 1000ML 1,000 ML IV SCH (09:00)
--- NOTE | 2017-11-14 09:33 | OPERATIVE REPORT ---
DATE OF OPERATION: 11/14/2017 PREOPERATIVE DIAGNOSES: The patient is a 22-year-old G2, P0-0-1-0 at 40 weeks and 2 days of gestation, breech presentation and oligohydramnios. POSTOPERATIVE DIAGNOSES: Same. PROCEDURE: Primary low transverse with Pfannenstiel skin incision. SURGEON: Morgan Aaron MD FINANCE ASSISTANT: Mo Camp MD EBL: 500 mL FLUIDS: 1600 mL of lactated ringer. SPECIMENS: Placenta and cord blood. DRAINS: Nguyen drained 150 mL of urine. ANESTHESIA: Spinal. COMPLICATIONS: None. FINDINGS: Baby was a viable male infant delivered at 08:03 a.m. Apgars were 8/9. Weight was 7 pounds 9 ounces, which is 3430 grams. Baby was in a suzy breech presentation. MATERNAL FINDINGS: Normal uterus, fallopian tubes and ovaries. DESCRIPTION OF PROCEDURE: The patient was taken to the operating room where spinal anesthesia was given without difficulty. She was placed in dorsal supine position with a leftward tilt. She was prepared and draped in usual sterile fashion. A Pfannenstiel skin incision was made and carried through to the underlying layer of fascia with the Bovie. Fascia was incised in midline and incision extended laterally with the help of Macias scissors. Lower aspect of the fascial incision was grasped with Leela clamps, elevated, underlying rectus muscles were dissected off sharply and the upper aspect of the fascial incision was then grasped with Leela clamps, elevated, underlying rectus muscles were dissected off sharply. Rectus muscles were in the midline and peritoneum was entered bluntly. Peritoneal incision was then extended superiorly and inferiorly with good visualization of the bladder. Bladder blade was inserted. Vesicouterine peritoneum was identified, grasped with pickups and entered sharply with Metzenbaum scissors. Bladder flap was created digitally and bladder blade was reinserted. Lower uterine segment was incised in a transverse fashion and incision was extended laterally with the help of bandage scissors. Membranes were ruptured. Clear fluid was obtained and the baby's buttocks were delivered without difficulty, then the trunk gently, the arms in a flexion position and the head without difficulty. Mouth and nose were suctioned. Cord was clamped x2 at 1 minute and cut. The baby was handed off to the awaiting wrapper cashier and cord blood was obtained. Placenta was delivered manually as intact and complete. Uterus was exteriorized, cleared of all clots and debris. The incision was repaired with 0 Vicryl in a running locked fashion. A second imbricating layer was placed with 0 Vicryl in a running locked fashion. There was an oozing point in the middle of the repair, which was repaired with figure-of- eight stitches x2. There was another one on the right side of the middle, which was also controlled with [id number] stitch x2. Excellent hemostasis was achieved. The uterus was returned to the abdomen and pelvis was irrigated with warm normal saline and suctioned. Incision was inspected to be hemostatic. Then the parietal peritoneum was identified, grasped with Leela clamps and repaired with 3-0 Vicryl in a running fashion. The rectus muscles were closed with the same suture in a running fashion. The rectus fascia was reapproximated with 0 Vicryl in a running fashion starting from both corners and meeting in the midline and the subcuticular fat tissue was reapproximated with 3-0 Vicryl in a running fashion and the skin was closed with 4-0 Monocryl in a subcuticular fashion. The patient tolerated the procedure well. Sponge, lap and needle counts were correct x3. The patient was given 2 grams of cefazolin before surgery. She was taken to the recovery room in stable condition. No complications happened. I and Dr. Camp were present during the whole procedure. I attest to the content of the Intraoperative Record and any orders documented therein. Any exceptions are noted below. SOREN
[2017-11-14] MEDS ORDERED: ACETAMINOPHEN IV 100 ML IV PRN (10:45)
[2017-11-14] MEDS: SIMETHICONE 80 MG CHEW PO SCH ×3 (14:17→19:54)
[2017-11-14] MEDS: KETOROLAC TROMETHAMINE 30 MG/ML VIAL IV. PRN ×2 (14:18→19:54)
[2017-11-14] MEDS ORDERED: NURSING VERBAL MED ORDER ONE (14:45)
[2017-11-14] MEDS: DOCUSATE SODIUM 100 MG CAP PO SCH (19:54)
--- NOTE | 2017-11-14 20:20 | Anesthesiology Progress Note ---
Anesthesia Post Op Note Date & Time Nov 14, 2017 at 20:19 Vital Signs Pain Intensity: 4.0 Vital Signs Past 12 Hours Date Time Temp Pulse Resp B/P (MAP) Pulse Ox O2 Delivery O2 Flow Rate FiO2 11/14/17 20:00 18 99 11/14/17 19:15 36.4 75 18 116/73 (87) Room Air 11/14/17 19:00 17 97 11/14/17 18:00 20 98 11/14/17 17:00 17 97 11/14/17 16:00 18 98 11/14/17 15:30 98 Room Air 11/14/17 15:30 36.5 70 20 113/68 (83) 98 Room Air 11/14/17 15:00 20 98 11/14/17 14:00 18 96 11/14/17 13:00 18 96 11/14/17 12:00 20 96 11/14/17 11:45 96 Room Air 11/14/17 11:45 36.7 71 20 101/63 (76) 96 Room Air Notes Mental Status: alert / awake / arousable, participated in evaluation Nausea / Vomiting: adequately controlled Pain: adequately controlled Airway Patency, RR, SpO2: stable & adequate BP & HR: stable & adequate Hydration State: stable & adequate Neuraxial Anesthesia: was administered, sensory block resolved Anesthetic Complications: no major complications apparent
[2017-11-14] MEDS: SERTRALINE HCL 50 MG TAB PO SCH (21:45)
[2017-11-15] VITALS (13 sets, daily range): BP systolic 93–108; BP diastolic 60–66; PULSE 71–73; TEMP 36.7–36.9; O2SAT 97–100
[2017-11-15] MEDS: KETOROLAC TROMETHAMINE 30 MG/ML VIAL IV. PRN (05:50)
[2017-11-15] MEDS ORDERED: DiphenhydrAMINE HCL 50 MG/ML VIAL IV PRN (06:00)
[2017-11-15] MEDS ORDERED: OXYCODONE/ACETAMINOPHEN 5-325 TAB PO PRN (06:00)
[2017-11-15] MEDS ORDERED: KETOROLAC TROMETHAMINE 30 MG/ML VIAL IV. PRN (06:00)
[2017-11-15] MEDS ORDERED: ONDANSETRON INJ 2 MG/ML 2 ML VIAL IV PRN (06:00)
[2017-11-15] MEDS ORDERED: MEPERIDINE HCL 50 MG/ML CARP IV PRN ×2 (06:00)
[2017-11-15 06:16] LABS: BASO % 0.2 %; BASO ABS # 0.02 K/uL (0-0.2); EOS % 0.9 %; EOS ABS # 0.09 K/uL (0-0.5); HEMATOCRIT 28.4 % (37-47); IG# 0.08 K/uL (0.00-0.02); LYMPH % 25.8 %; LYMPH ABS # 2.63 K/uL (1.2-3.4); MEAN CELL VOLUME 83.3 fL (80-100); MEAN CORPUSCULAR HEMOGLOBIN 26.4 pg (25-34); MEAN CORPUSCULAR HGB CONC 31.7 g/dl (32-36); MEAN PLATELET VOLUME 10.2 fL (7.4-10.4); MONO % 2.9 %; NEUT % 69.4 %; NEUT ABS # 7.08 K/uL (1.4-6.5); PLATELET COUNT 234 K/uL (130-400); RED CELL DISTRIBUTION WIDTH CV 15.2 % (11.5-14.5)
--- NOTE | 2017-11-15 07:19 | OB/GYN Progress Note ---
CASH APPLICATIONS ASSOCIATE Progress Note Date of Service Nov 15, 2017. Subjective conversation w/ patient, physical exam Ambulation: ambulating normally Voiding: no voiding problems Passing Gas: Yes Diet Tolerance: Clear Liquids Lochia: Small Pain: 03/19 Notes: Doing well, no concerns. Pain well controlled. Tolerating liquids. +flatus, - BM. Ambulating without difficulty. Incision dressing removed. Objective Vital Signs Date Time Temp Pulse Resp B/P (MAP) Pulse Ox O2 Delivery O2 Flow Rate FiO2 11/15/17 05:00 16 97 11/15/17 04:00 18 98 11/15/17 03:10 36.9 73 18 93/60 (71) Room Air 11/15/17 03:00 16 98 11/15/17 02:00 16 98 11/15/17 01:00 16 98 11/15/17 00:00 18 100 11/14/17 23:35 Room Air 11/14/17 23:35 36.9 67 18 95/57 (70) 100 Room Air 11/14/17 23:00 16 97 11/14/17 21:00 20 98 11/14/17 20:00 18 99 11/14/17 19:15 36.4 75 18 116/73 (87) Room Air 11/14/17 19:00 17 97 11/14/17 18:00 20 98 11/14/17 17:00 17 97 11/14/17 16:00 18 98 11/14/17 15:30 98 Room Air 11/14/17 15:30 36.5 70 20 113/68 (83) 98 Room Air 11/14/17 15:00 20 98 11/14/17 14:00 18 96 11/14/17 13:00 18 96 11/14/17 12:00 20 96 11/14/17 11:45 96 Room Air 11/14/17 11:45 36.7 71 20 101/63 (76) 96 Room Air Physical Exam General Appearance: WELL-APPEARING Respiratory/Chest: chest non-tender, lungs clear Cardiovascular: regular rate, rhythm Abdomen: normal bowel sounds, soft Fundus: Firm Incision Description: Clean, Dry & Intact Extremities: normal range of motion, non-tender Laboratory Results Last 24 Hours Test 11/15/17 06:04 White Blood Count 10.20 K/uL Red Blood Count 3.41 M/uL Hemoglobin 9.0 g/dL Hematocrit 28.4 % Mean Corpuscular Volume 83.3 fL Mean Corpuscular Hemoglobin 26.4 pg Mean Corpuscular Hemoglobin Concent 31.7 g/dl Platelet Count 234 K/uL Mean Platelet Volume 10.2 fL Neutrophils (%) (Auto) 69.4 % Lymphocytes (%) (Auto) 25.8 % Monocytes (%) (Auto) 2.9 % Eosinophils (%) (Auto) 0.9 % Basophils (%) (Auto) 0.2 % Neutrophils # (Auto) 7.08 K/uL Lymphocytes # (Auto) 2.63 K/uL Monocytes # (Auto) 0.30 K/uL Eosinophils # (Auto) 0.09 K/uL Basophils # (Auto) 0.02 K/uL RDW Standard Deviation 46.0 fL RDW Coefficient of Variation 15.2 % Immature Granulocyte % (Auto) 0.8 % Immature Granulocyte # (Auto) 0.08 K/uL Assessment and Plan Post-Op Day Number: 1 Continue Routine Care: -Advance diet and activity as tolerated. -Incision dressing removed and is clean/dry/intact -Continue routine postop care
[2017-11-15] MEDS: SIMETHICONE 80 MG CHEW PO SCH ×4 (09:13→19:22)
[2017-11-15] MEDS: PRENATAL VITAMIN TAB PO SCH (09:13)
[2017-11-15] MEDS: DOCUSATE SODIUM 100 MG CAP PO SCH ×2 (09:14→19:22)
[2017-11-15] MEDS: FERROUS SULFATE 325 MG TAB PO SCH (09:14)
[2017-11-15] MEDS: IBUPROFEN 600 MG TAB PO PRN ×2 (12:20→19:21)
[2017-11-15] MEDS: OXYCODONE/ACETAMINOPHEN 5-325 TAB PO PRN ×2 (12:49→19:21)
[2017-11-15] MEDS: SERTRALINE HCL 50 MG TAB PO SCH (21:37)
[2017-11-15] MEDS ORDERED: BISACODYL 5 MG TABEC PO ONE (22:00)
[2017-11-16] MEDS: IBUPROFEN 600 MG TAB PO PRN ×4 (04:45→20:15)
[2017-11-16] MEDS: OXYCODONE/ACETAMINOPHEN 5-325 TAB PO PRN ×4 (04:45→20:16)
[2017-11-16 07:46] VITALS: BP 111/74; PULSE 82; TEMP 37; O2SAT 99
[2017-11-16] MEDS: FERROUS SULFATE 325 MG TAB PO SCH (08:05)
[2017-11-16] MEDS: SIMETHICONE 80 MG CHEW PO SCH ×4 (08:05→20:15)
[2017-11-16] MEDS: DOCUSATE SODIUM 100 MG CAP PO SCH ×2 (08:05→20:15)
[2017-11-16] MEDS: PRENATAL VITAMIN TAB PO SCH (08:05)
--- NOTE | 2017-11-16 08:31 | OB/GYN Progress Note ---
REAL ESTATE APPRAISER SUPERVISOR Progress Note Date of Service: Nov 16, 2017. Patient is seen and examined. She feels well, no complaints. Pain is under control with oral meds. Ambulating without dizziness Voiding without difficulty Tolerating regular diet with out N&V Flatus + BM NEG Bleeding is minimal No fever/ chills/ CP/ SOB/ N&V/ Leg pain Breast and bottle feeding without problems Date Time Temp Pulse Resp B/P (MAP) Pulse Ox O2 Delivery O2 Flow Rate FiO2 11/16/17 07:46 Room Air 11/16/17 07:46 37.0 82 16 111/74 (86) 99 Room Air 11/15/17 23:35 Room Air 11/15/17 16:25 98 Room Air 11/15/17 08:50 98 Room Air PE: General: Alert, orientedx3, NAD CVS: S1S2 RRR Lungs; CTAB Abd: soft, NT, ND, BS+, fundus firm, below Umbilicus Incision: Clean, dry, intact Perineum intact, Lochia rubra minimal Ext; NT, no edema AP: 22 yo s/p C Section, pod# 2 VSS Afebrile doing well Continue routine postop care Encourage ambulation, PO intake All questions were answered D/C home tomorrow
[2017-11-16] MEDS ORDERED: BISACODYL 10 MG SUPP PR PRN (08:45)
[2017-11-16 15:40] VITALS: BP 120/83; PULSE 78; TEMP 36.4; O2SAT 98
[2017-11-16] MEDS: SERTRALINE HCL 50 MG TAB PO SCH (21:08)
[2017-11-16 23:05] VITALS: BP 112/69; PULSE 70; TEMP 36.4
[2017-11-17] MEDS: IBUPROFEN 600 MG TAB PO PRN ×2 (00:44→07:55)
[2017-11-17] MEDS: OXYCODONE/ACETAMINOPHEN 5-325 TAB PO PRN ×2 (00:45→07:55)
[2017-11-17 07:24] VITALS: BP 119/75; PULSE 81; TEMP 36.3; O2SAT 99
[2017-11-17] MEDS: FERROUS SULFATE 325 MG TAB PO SCH (07:53)
[2017-11-17] MEDS: DOCUSATE SODIUM 100 MG CAP PO SCH (07:53)
[2017-11-17] MEDS: PRENATAL VITAMIN TAB PO SCH (07:53)
[2017-11-17] MEDS: SIMETHICONE 80 MG CHEW PO SCH (07:54)
--- NOTE | 2017-11-17 10:05 | Surgery Progress Note ---
Surgery Progress Note Date of Service Nov 17, 2017. Subjective Post OP Day: 3 + feeling well, + ambulating (+ve), + flatus (+ve ), + pain controlled (+ve), + diet (PO food and meds), No complaints, No chest pain, No SOB, No bowel movement , No using COMPLAINT CLERK, No nausea, No vomiting Objective Vital Signs: Date Time Temp Pulse Resp B/P (MAP) Pulse Ox O2 Delivery O2 Flow Rate FiO2 11/17/17 07:24 36.3 81 14 119/75 (90) 99 Room Air 11/16/17 23:05 Room Air 11/16/17 23:05 36.4 70 18 112/69 (83) Room Air 11/16/17 15:40 98 Room Air 11/16/17 15:40 36.4 78 18 120/83 (95) 98 Room Air General Appearance: WD/WN, no apparent distress Head: normocephalic, atraumatic Neck: supple, no adenopathy, thyroid normal, no JVD, no carotid bruits, trachea midline Respiratory/Chest: chest non-tender, lungs clear, normal breath sounds, no respiratory distress, no accessory muscle use Cardiovascular: regular rate, rhythm, no edema, no gallop, no JVD, no murmur Abdomen: normal bowel sounds, non tender, non distended, soft, no organomegaly , no pulsatile mass Incision(s): clean, dry, intact, no erythema, no drainage Extremities: normal range of motion, non-tender, normal inspection, no pedal edema, no calf tenderness, normal capillary refill, pelvis stable Assessment & Plan POD #3 pt doing well d/c home with instructions
[2017-11-17] MEDS ORDERED: FRRS300 PO (10:06)
[2017-11-17] MEDS ORDERED: CLC100 PO (10:06)
[2017-11-17] MEDS ORDERED: OXYC-57 PO (10:06)
[2017-11-17] MEDS ORDERED: MTR600X PO (10:06)
--- NOTE | 2017-11-17 10:07 | Discharge Instructions ---
Discharge Instructions Date of Service Nov 17, 2017. Admission Reason for Admission: Check Labor Discharge Discharge Diagnosis / Problem: postop Discharge Goals Goal(s): Routine recovery after Activity Recommendations Activity Limitations: as noted below ACTIVITY RECOMMENDATIONS: * Gradual return to full activity over the next 2-3 weeks. * No lifting - nothing heavier than baby over the next 2-3 weeks. * Do not engage in vigorous exercise, sexual activity or sports until cleared by your physician. * Do not drive or operate any motorized equipment until cleared by your physician. * You may shower/bathe daily. BREAST CARE: If you are not breast feeding: * Wear a supportive bra 24 hours a day for one to two weeks. * Avoid stimulating your breasts and nipples as much as possible during the first few weeks after delivery. * When taking a shower, have the warm water hit your back, not breasts. * When your breasts feel full, apply ice packs. Usually three to four times a day helps ease the discomfort. * Take a mild pain medication (Tylenol/Motrin) when you are uncomfortable. If breast feeding: * Use breast milk to lubricate nipples. Lansinoh cream may be used for sore nipples. You do not need to remove cream prior to breast feeding. If using a different brand of cream, check the label for directions regarding removal of cream prior to nursing. * Wear a supportive bra. * If having problems with breasts or breast feeding, call a cardiology consultants or your health care provider. OVER THE COUNTER MEDICATION: * For discomfort or pain, you may use Acetaminophen (Tylenol), Ibuprofen (Advil ), or Naproxen (Aleve) following the package directions. * For constipation you may use Colace following the package directions. SPECIAL CARE INSTRUCTIONS: When you are discharged from the hospital, it is important for you to follow the instructions listed below: * During the first week at home, you should be able to care for yourself and your baby. In addition, the usual light household activities are encouraged. * Limit your activities to the way you feel. Do not try to clean the house or move furniture. Be sensible. * If you actively engage in sports and have done so up until the time of your delivery, you may resume these activities as soon as you feel able. This may take up to one month or even longer. Use good judgment. * Continue to take your vitamins for at least six weeks after the of your baby. * Your diet need not be limited unless you were on a special diet before your delivery. Breast-feeding mothers need around 2500 calories per day and at least 64-80 ounces of fluid per day (8 to 10 glasses). * You should eat foods from the four major food groups. Crash diets or fad diets are to be avoided. Eating lean meats, fresh fruits and vegetables, low-fat dairy products, high fiber foods and a regular exercise program, will help you get back to your pre- weight without putting your health at risk. * Constipation is sometimes a problem after delivery. Take a mild laxative as needed. If breast feeding, Milk of Magnesia is acceptable to use. You may use a suppository or Fleets enema if no episiotomy. * A daily shower or tub bath is suggested. Be sure to thoroughly and gently dry the perineum. * A bloody vaginal discharge will usually continue until around four weeks post . A small amount of bleeding may continue for as long as six weeks. Vaginal discharge changes from the bright red bleeding after delivery to pink then brownish and finally yellowish-pink before becoming white and disappearing. * Bleeding may increase with activity. Your first period may come in 4-8 weeks. If you are breast feeding, your period may be delayed even longer. * [place] (sex) can begin whenever both you and your partner feel comfortable and do not have any form of genital infection. It is recommended that you wait at least six weeks for internal and external healing to occur. If you have questions, please talk to your health care practitioner. A condom should be used to prevent infection and . * Foreplay, gentle intercourse and lubrication is very important the first several times to prevent pain. A water-based lubricant such as K-Y jelly or Astroglide may be used. * Tampons and/or Douching should be avoided until after six weeks check-up. * If you have RH negative blood and your baby is RH positive, you will receive RHOGAM by injection prior to discharge. The nurse will give you a card to keep with you that has the date and place that you received RHOGAM after delivery. * During your care, you had a Rubella screen done to check for the presence of rubella antibodies in your blood. If your test was negative, you will receive a Rubella vaccine prior to discharge. This vaccine may cause a fever, soreness at the injection site and flu-like symptoms. If these symptoms persist, notify your health care practitioner. is not advised for three months after a Rubella vaccine. * Verbalizes understanding of car seat law as reviewed with patient nursing. * Car Seat hand-out given and reviewed with patient by nursing. * Shaken baby information reviewed with patient by nursing. Call you doctor if: * Heavy bleeding (saturating several pads an hour) or passing clots the size of your fist. * A fever >101 degrees F (38.3 degrees C) on two occasions four hours apart and /or chills. * Unusual pain in the pelvic or vaginal areas. Pain should improve each day . * Call the doctor for any increased redness, drainage or swelling around the incision and any pain unrelieved by prescribed pain medication. * Any signs or symptoms of phlebitis (possible blood clots forming in the veins ): leg pain, warm, red or swollen area on leg. * "Baby Blues" lasting longer than two weeks. If you have any questions or concerns, call your health care practitioner at . FOLLOW-UP VISIT: * Incision check (staple removal) in 1 week. Please call doctor's office at to set up appointment. * Please call the office at to schedule a 6 week examination. It is important you keep this appointment. * It is important for you to make arrangements for either yearly or twice yearly check-ups thereafter. . Current Hospital Diet Patient's current hospital diet: Regular OB Diet Discharge Diet Recommended Diet: Regular Diet Procedures Procedures Performed: LOW TRANSVERSE CAESAREAN SECTION Pending Studies Studies pending at discharge: no Medical Emergencies . Who to Call and When: Medical Emergencies: If at any time you feel your situation is an emergency, please call [phone] immediately. . Non-Emergent Contact Non-Emergency issues call your: Specialist . . "Provider Documentation" section prepared by German Seo. . VTE Core Measure Inpt VTE Proph given/why not?: Treatment not indicated
[2017-11-17 11:07] VITALS: BP_DIAS 75; PULSE 81; TEMP 36.3
[2017-11-17 12:39] VITALS: O2SAT 99
== END 2017-11-17 11:30 | disposition home or self-care (01) | DRG 765 ==
LOC: C.OPB 22:29 → C.LD 22:29 → C.OPB 23:35 → OBSVTOIN 11-14 09:59 → C.OBG 11-14 11:35
PROVIDERS: ADMIT Obstetrics & Gynecology; ATTEND Obstetrics & Gynecology
PROC: 10D00Z1 Extraction of Products of Conception, Low, Open Approach (ICD-10-PCS; principal; 2017-11-14 07:14)
DX: O32.1XX0 Maternal care for breech presentation, not applicable or unspecified (principal); O41.03X0 Oligohydramnios, third trimester, not applicable or unspecified; O26.893 Other specified pregnancy related conditions, third trimester; R51 Headache; O99.344 Other mental disorders complicating childbirth; F32.9 Major depressive disorder, single episode, unspecified; O28.5 Abnormal chromosomal and genetic finding on antenatal screening of mother; O99.334 Smoking (tobacco) complicating childbirth; F17.200 Nicotine dependence, unspecified, uncomplicated; Z79.899 Other long term (current) drug therapy; Z87.59 Personal history of other complications of pregnancy, childbirth and the puerperium; Z3A.40 40 weeks gestation of pregnancy; Z37.0 Single live birth